=== PATIENT | male | born 1945 | race Caucasian/White ===

== ENCOUNTER → 2019-10-28 | Outpatient (CLI) | payer MEDICARE ==
[~2019-10-28] MED LIST: REGADENOSON 0.4 MG/5 ML SYR IV ONE
--- NOTE | 2019-10-28 09:19 | Diagnostic Imaging Report ---
EXAM: Abdominal Aorta Ultrasound INDICATION: CAD COMPARISON: None. TECHNIQUE: Grayscale, color Doppler, and spectral waveform analysis of the abdominal aorta and common iliac arteries was performed. FINDINGS: Diameter (AP x Transverse) Proximal Aorta: 1.3 x 1.1 cm Mid Aorta: 1.5 x 1.7 cm Distal Aorta: 1.1 x 1.0 cm Mild atherosclerotic plaque noted within the abdominal aorta. Arterial waveforms are within normal limits. IMPRESSION: No evidence for abdominal aortic aneurysm. Signed by: Dr. Buddy Xiong MD on 10/28/2019 9:16 AM
--- NOTE | 2019-10-28 22:34 | Myoview Stress Test ---
DATE OF STUDY: 10/28/2019 07:49:00 Stress Test - Treadmill ONLY PROCEDURE TITLE: Rest single isotope SPECT imaging with pharmacologic stress. INDICATION: Coronary artery disease. PROCEDURE IN DETAIL: Pharmacologic stress testing was performed with regadenoson per protocol. The heart rate was 81 beats per minute at rest and increased to 98 beats per minute during the regadenoson infusion. The resting blood pressure was 122/73 mmHg and increased to 148/62 mmHg, which is a normal response. The resting electrocardiogram demonstrated normal sinus rhythm. There were no ST-segment changes suggestive of myocardial ischemia. Myocardial perfusion imaging was performed at rest following the injection of 11 mCi of tetrofosmin. At peak pharmacologic effect, the patient was injected with 33 mCi of tetrofosmin. However, stress images were not obtained due to clearly malfunction and the patient refusal to remain for stress imaging. FINDINGS: The overall quality of the study is fair. Left ventricular cavity is noted to be normal size on the rest images. There is a small mild perfusion defect in the basal inferior wall on rest. IMPRESSION: Myocardial perfusion imaging is abnormal. There is a small nontransmural scar in the inferior wall, cannot rule out artifact. Normal ECG Lexiscan stress test. Stress images were not available due to the patient refusal. Akanksha Pérez MD ABS/MODL /[id number]
== END ==
LOC: US 07:32
PROVIDERS: ATTEND Internal Medicine
DX: I25.118 Atherosclerotic heart disease of native coronary artery with other forms of angina pectoris (principal)
CPT/HCPCS: 76770; 78452; 93017; 93306; A9502; J2785